=== PATIENT | male | born 1990 | race Caucasian/White ===

== ENCOUNTER 2019-11-22 12:33 | Outpatient (NON) | payer OTHER, SELFPAY ==
[2019-11-22 20:24] LABS: SARS-CoV-2 RNA PCR Negative
== END 2019-11-22 12:34 ==
PROVIDERS: Visit Provider Chiropractor Rehabilitation
DX: R09.89 Other specified symptoms and signs involving the circulatory and respiratory systems (principal); Z20.828 Contact with and (suspected) exposure to other viral communicable diseases
CPT/HCPCS: 87635; C9803; U0003

== ENCOUNTER 2020-06-13 22:38 | Emergency (ER) | payer OTHER, MEDICAID, SELFPAY ==
--- NOTE | ~2020-06-13 | XR_ITS ---
XR facial bones min 3V DATE: 06/13/2020 23:03 INDICATION: Elbowed in face during basketball. Nasal injury TECHNIQUE: 5 views COMPARISON: None FINDINGS: Left nasal plate fracture is suggested on the submentovertical view. This could be confirme d by CT facial bone examination if clinically desired. Anterior maxillary spine appears intact. No other facial fracture is evident. Zygomatic arches frontozygomatic sutures appear intact. Normal sella turcica. Upper cervical spine is normally aligned. Imaging of the sinuses and mastoid air cells are normally developed and aerated. IMPRESSION: Suspected left nasal plate fracture Reviewed, dictated and finalized at location A.
[2020-06-13 22:40] VITALS: BP 125/77; PULSE 59; RESP 14; TEMP 36.1; O2SAT 100
[2020-06-14 00:35] VITALS: BP 115/88; PULSE 59; RESP 16; O2SAT 100
--- NOTE | 2020-06-14 00:43 | ED.GENADULT ---
HPI - General Adult General Chief complaint: Head Injury Stated complaint: nose pain Time Seen by Provider: 06/14/20 00:22 Source: patient History of Present Illness HPI narrative: Patient is a 30 y/o male complaining of nose pain starting several hours after he was elbowed on his nose during a basketball game. He describes his pain as aching and rates it as 1/10. He states that blinking aggravates his pain. He denies any headache, vomiting or LOC. He had some nose bleed initially, but the bleeding has stopped. Related Data Allergies Allergy/AdvReac Type Severity Reaction Status Date / Time No Known Allergies Allergy Verified 06/14/20 00:23 Review of Systems Constitutional: Constitutional: Denies chills, Denies fever(s), Denies headache(s) and Denies weakness Eyes: Eyes: Denies blurry vision ENT: Denies headache(s), Reports epistaxis, Denies neck pain and Reports nose pain Cardiovascular: Cardiovascular: Denies chest pain and Denies dyspnea Respiratory: Respiratory: Denies cough and Denies dyspnea Gastrointestinal: Gastrointestinal: Denies abdominal pain, Denies diarrhea, Denies nausea and Denies vomiting Genitourinary: Genitourinary: Denies hematuria and Denies dysuria Musculoskeletal: Musculoskeletal: Denies back pain and Denies neck pain Neurologic: Denies headache(s) and Denies weakness Exam Const: General: no acute distress and well developed Orientation/consciousness: oriented to person, oriented to place, oriented to time and patient oriented x3 HENMT: Head: normocephalic Ears: external ears normal General nose exam: Other nasal findings present (nose deformed, tender to palpation) Eyes: General: appearance normal, both eyes and all related structures Conjunctivae: conjunctivae normal Neck: Neck: normal visual inspection and full ROM Chest: Chest palpation & inspection: normal inspection of the chest and no tenderness Resp: Effort & Inspection: normal respiratory effort Auscultation: clear to auscultation bilaterally Cardio: Rate: regular rate Rhythm: regular rhythm GI: GI Palp: No abdominal tenderness and Yes Soft to palpation Skin: General skin exam: normal color and turgor normal Neuro: General: oriented to person, oriented to place, oriented to time and patient oriented x3 Cognition (Neuro): normal cognition Extrem: General: normal to inspection, full ROM and no pedal edema Psych: Appearance: grossly normal Mental Status: mental status grossly normal Affect: normal affect Course Reevaluation(s) Reevaluation #1: Relayed Dr. Stewart's recommendation to the patient. Date: 06/14/20 Time: 00:49 Consultations Consultation #1: Discussed with Dr. Stewart, who recommends gentle nose blowing, nasal saline flush and he will follow up the patient. Date: 06/14/20 Time: 00:48 Vital Signs Vital signs: Vital Signs Temperature 36.1 C L 06/13/20 22:40 Pulse Rate 59 L 06/13/20 22:40 Respiratory Rate 14 06/13/20 22:40 Blood Pressure 125/77 06/13/20 22:40 Pulse Oximetry 100 06/13/20 22:40 Temperature 36.1 C L 06/13/20 22:40 Pulse Rate 59 L 06/14/20 00:35 Respiratory Rate 16 06/14/20 00:35 Blood Pressure 115/88 06/14/20 00:35 Pulse Oximetry 100 06/14/20 00:35 Medical Decision Making Vital Signs Vital Signs: Vital Signs Temperature 36.1 C L 06/13/20 22:40 Pulse Rate 59 L 06/13/20 22:40 Respiratory Rate 14 06/13/20 22:40 Blood Pressure 125/77 06/13/20 22:40 Pulse Oximetry 100 06/13/20 22:40 Temperature 36.1 C L 06/13/20 22:40 Pulse Rate 59 L 06/14/20 00:35 Respiratory Rate 16 06/14/20 00:35 Blood Pressure 115/88 06/14/20 00:35 Pulse Oximetry 100 06/14/20 00:35 Discharge Plan Discharge Clinical Impression: Closed fracture nasal bone Qualifiers: Encounter type: initial encounter Qualified Code(s): S02.2XXA - Fracture of nasal bones, initial encounter for closed fracture Patient Disposition: Home, Self-Care Conditio
== END 2020-06-14 01:02 | disposition home or self-care (01) ==
PROVIDERS: Emergency Provider Emergency Medicine
DX: S02.2XXA Fracture of nasal bones, initial encounter for closed fracture (principal); W51.XXXA Accidental striking against or bumped into by another person, initial encounter; Y93.67 Activity, basketball
CPT/HCPCS: 70150; 99283

== ENCOUNTER 2021-03-07 14:22 | Outpatient (CLI) | payer OTHER, SELFPAY ==
--- NOTE | ~2021-03-07 | XR_ITS ---
EXAMINATION: XR finger 5th RT min 2V DATE: 03/07/2021 14:42 INDICATION: Basketball injury with pain and swelling at the right fifth proximal interphalangeal join t. TECHNIQUE: Dorsal palmar, lateral and 2 oblique views of the right fifth digit were obtained COMPARISON: None FINDINGS: Mild ulnar angulation at the right fifth proximal interphalangeal joint. There is moderate ulnar side d nonuniform joint space narrowing at the proximal interphalangeal joint. There is suggestion of oste olysis along the ulnar rim of the head and distal articular surface of the proximal phalanx. No other lesions suspicious for fracture identified. Normal alignment and joint space at the remaining profil e joints of the right hand. Prominent periarticular soft tissue swelling at the fifth proximal interp halangeal joint. IMPRESSION: 1. 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 Reviewed, dictated and finalized at location B. [facility] [employer] IMPRESSION: 1. 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
== END 2021-03-07 14:23 | disposition home or self-care (01) ==
LOC: ANHIMG 14:29
PROVIDERS: Visit Provider Plastic Surgery
DX: S62.616A Displaced fracture of proximal phalanx of right little finger, initial encounter for closed fracture (principal); X58.XXXA Exposure to other specified factors, initial encounter
CPT/HCPCS: 73140

== ENCOUNTER 2022-06-27 16:10 | Emergency (ER) | payer OTHER, SELFPAY ==
[2022-06-27 16:22] VITALS: BP 116/65; PULSE 65; RESP 16; TEMP 36.6; O2SAT 99
--- NOTE | 2022-06-27 16:38 | ED.SKABFB ---
HPI - Skin/Abscess/Foreign Bdy General Chief complaint: Skin/Abscess/Foreign Body Stated complaint: Rash Time Seen by Provider: 06/27/22 16:38 Source: patient, RN notes reviewed and old records reviewed Mode of arrival: ambulatory Limitations: no limitations History of Present Illness HPI narrative: 32-year-old male presents to the [facility] with complaints of a rash to his torso that started yesterday. States that a hot shower pain worse. He has not taken anything for his symptoms. No new creams ointments lotions or detergents. No new clothes. Does not describe them as burning nor itchy. Onset (ago): day(s) (1) Related Data Allergies Allergy/AdvReac Type Severity Reaction Status Date / Time No Known Allergies Allergy Verified 06/27/22 16:27 Review of Systems Review of Systems: All systems reviewed & are unremarkable except as noted in HPI and below Constitutional: Constitutional: Reports no additional constitutional complaints Eyes: Eyes: Reports no additional eye complaints ENT: Reports system reviewed and no additional complaints, except as documented Cardiovascular: Cardiovascular: Reports no additional cardiovascular complaints, Denies chest pain and Denies dyspnea Respiratory: Respiratory: Reports no additional respiratory complaints, Denies chest congestion, Denies cough and Denies dyspnea Gastrointestinal: Gastrointestinal: Reports no additional gastrointestinal complaints, Denies abdominal pain, Denies nausea and Denies vomiting Musculoskeletal: Musculoskeletal: Reports no additional musculoskeletal complaints Integumentary/Breasts: Skin/Breast: Reports as per HPI and Reports rash Neurologic: Reports system reviewed and no additional complaints, except as documented Psychiatric: Psychiatric: Reports no additional psychiatric complaints Allergic/Immunologic: Allergic/Immunologic: Reports no additional allergic/immunologic complaints PMFSH Comments At the time of my signature, I reviewed and agree with the nursing past medical, surgical, social, and family history. There is no relevant family history pertinent to the patient complaint. Exam Const: General: cooperative, healthy appearing, comfortable, no acute distress, well developed, alert and well nourished Nutritional Appearance: well nourished Orientation/consciousness: patient oriented x3 Limitations: no limitations HENMT: Head: normal to inspection Ears: hearing grossly normal bilaterally and external ears normal Face/Nose/Sinus: Normal external nose present, Normal nares present, Normal nasal mucous membranes and turbinates present and normal facial exam Face and sinus: normal facial exam Mouth: Yes Normal oral and palatal mucosa present, Yes lip normal and Yes moist mucous membranes Throat: posterior oropharynx normal and uvula midline Eyes: General: appearance normal, both eyes and all related structures Alignment and Position: alignment normal Periorbital: periorbital findings normal Conjunctivae: conjunctivae normal Pupils: Equal, round and reactive pupils present EOM: EOMs intact bilaterally Neck: Neck: normal visual inspection, full ROM, no lymphadenopathy and no meningeal signs Chest: Chest palpation & inspection: normal inspection of the chest Resp: Effort & Inspection: normal respiratory effort and able to speak in complete sentences Auscultation: clear to auscultation bilaterally, no crackles, no rales, no rhonchi and no wheezes Cardio: Rate: regular rate Rhythm: regular rhythm Back/Spine/Pelvis: Cervical Spine: cervical ROM normal Thoracic/Lumbar Spine: No thoracic spinal tenderness Skin: General skin exam: normal color and no rashes or lesions noted Lesions: no lesions Rashes: rashes noted Torso arrangement (Generalized torso), color and surface blanching, dry, erythematous and smooth; fluctuant not assessed and nontender Wounds: no wounds Neuro: General: patient oriented x3, gait normal, tone normal, moves all extre
== END 2022-06-27 16:50 | disposition home or self-care (01) ==
PROVIDERS: Emergency Provider Nurse Practitioner; PCP Family Medicine
DX: R21 Rash and other nonspecific skin eruption (principal)
CPT/HCPCS: 99213; G0463